=== PATIENT | male | born 1955 | race Caucasian/White ===

== ENCOUNTER 2025-04-25 14:07 | Inpatient (IN) | payer MEDICARE, OTHER, SELFPAY ==
[2025-04-11 10:12] LABS: Hematocrit 33.5 % (39.0-52.0); Hemoglobin 10.5 g/dL (13.0-18.0); Mean Corp Hgb Conc. 31.3 g/dL (33.0-37.0); Mean Corpuscular Volume 85.2 fL (80.0-94.0); Platelet Count 343 10^3/uL (130-400); Red Cell Dist. Width 16.4 % (11.5-14.5)
[2025-04-11 10:13] LABS: INR 1.16; PT 15.2 Sec (11.4-14.6)
[2025-04-11 10:14] LABS: APTT 37.3 Sec (23.4-35.0)
[2025-04-11 10:41] LABS: ALT (SGPT) 15 U/L (0-50); AST (SGOT) 19 U/L (17-59); Albumin 3.7 g/dl (3.5-5.0); Alkaline Phosphatase 84 U/L (38-126); Blood Urea Nitrogen 16 mg/dl (9-20); Calcium 9.4 mg/dl (8.4-10.2); Carbon Dioxide 27 mmol/L (22-30); Chloride 101 mmol/L (98-107); Glucose 175 mg/dl (70-99); Potassium 4.3 mmol/L (3.5-5.1); Sodium 135 mmol/L (135-145); Total Protein 6.7 g/dl (6.3-8.2); eGFR > 60.00
[2025-04-14 13:26] VITALS: BMI 28.3
[2025-04-25] VITALS (9 sets, daily range): BP systolic 114–150; BP diastolic 47–74; BMI 28.3
[2025-04-25 14:30] LABS: Glucose - Point of Care 156 mg/dl (70-99)
[2025-04-25] MEDS: TYLENOL 1000 MG PO (14:35)
[2025-04-25] MEDS: NEURONTIN 300 MG PO (14:36)
[2025-04-25] MEDS: NORMOSOL-R/PLASMALYTE-A 1000 IV (14:36)
[2025-04-25] MEDS: HEPARIN 5000 UNITS SC (16:24)
[2025-04-25 16:34] LABS: Glucose - Point of Care 145 mg/dl (70-99)
[2025-04-25 19:47] LABS: Glucose - Point of Care 182 mg/dl (70-99)
--- NOTE | 2025-04-25 21:15 | PTCARENOTE ---
Pt arrived to unit from PACU, Pt AAOx3 denies pain, VSS,vanessa patent able to make needs known, reviewed plan of care with pt and spouse at bedside, Oriented to room and hospital polices, callbell within reach care ongoing
[2025-04-25] MEDS: COREG 25 MG PO (22:29)
[2025-04-25] MEDS: COZAAR 100 MG PO (22:29)
[2025-04-25] MEDS: NEURONTIN 200 MG PO (22:30)
[2025-04-25] MEDS: D5/0.9% SODIUM CHLORIDE 1000 IV (22:31)
[2025-04-25] MEDS: LASIX 40 MG PO (22:32)
[2025-04-25] MEDS: CELLCEPT 1000 MG PO (22:32)
[2025-04-25] MEDS: MAGNESIUM OXIDE 400 MG PO (22:32)
[2025-04-25] MEDS: TYLENOL PO (22:33)
[2025-04-25] MEDS: PROGRAF 5 MG PO (23:56)
[2025-04-25] MEDS: GLUCOPHAGE PO (23:58)
[2025-04-26] VITALS (7 sets, daily range): BP systolic 113–138; BP diastolic 54–64; PULSE 73; BMI 28.3
[2025-04-26] MEDS: TYLENOL PO ×3 (00:36→20:40)
[2025-04-26 06:18] LABS: Hematocrit 27.9 % (39.0-52.0); Hemoglobin 8.7 g/dL (13.0-18.0); Mean Corp Hgb Conc. 31.2 g/dL (33.0-37.0); Mean Corpuscular Volume 85.8 fL (80.0-94.0); Platelet Count 289 10^3/uL (130-400); Red Cell Dist. Width 15.5 % (11.5-14.5)
[2025-04-26 06:49] LABS: ALT (SGPT) 14 U/L (0-50); AST (SGOT) 20 U/L (17-59); Albumin 3.4 g/dl (3.5-5.0); Alkaline Phosphatase 74 U/L (38-126); Blood Urea Nitrogen 13 mg/dl (9-20); Calcium 8.5 mg/dl (8.4-10.2); Carbon Dioxide 25 mmol/L (22-30); Chloride 105 mmol/L (98-107); Estimated Creatinine Clearance 94 ml/min; Glucose 232 mg/dl (70-99); Potassium 4.6 mmol/L (3.5-5.1); Sodium 137 mmol/L (135-145); Total Protein 6.0 g/dl (6.3-8.2); eGFR > 60.00
[2025-04-26 06:55] LABS: Amylase 72 U/L (30-110); Lipase 241 U/L (23-300)
[2025-04-26] MEDS: TYLENOL 650 MG PO ×3 (08:34→16:24)
[2025-04-26] MEDS: LASIX 40 MG PO ×2 (08:34→16:24)
[2025-04-26] MEDS: NEURONTIN 200 MG PO ×3 (08:34→21:28)
[2025-04-26] MEDS: CELLCEPT 1000 MG PO ×2 (08:35→20:36)
[2025-04-26] MEDS: COREG 25 MG PO ×2 (08:35→20:36)
[2025-04-26] MEDS: GLUCOPHAGE 500 MG PO ×2 (08:35→16:28)
[2025-04-26] MEDS: MAGNESIUM OXIDE 400 MG PO ×2 (08:35→20:35)
[2025-04-26] MEDS: COLACE 100 MG PO ×2 (08:36→20:36)
[2025-04-26] MEDS: FEOSOL 325 MG PO (08:36)
[2025-04-26] MEDS: HEPARIN 5000 UNITS SC (08:36)
[2025-04-26] MEDS: PROGRAF 5 MG PO ×2 (08:58→20:36)
--- NOTE | 2025-04-26 12:05 | CM ---
CM met with pt and spouse bedside
They reside in a 2SH with 3STE + threshold
9 steps to 2nd floor- has ability to sleep on 1st floor if needed
Pt is independent with his ADLs without ADs, drives+
Has a WW for use if needed
Pt denies financial insecurities
PCP- Jonathan Vaughn
Rx- Abdullahi Galeana
Pt is POD#1 adrenalectomy
He noted ADC tomorrow
IMM verbally reviewed- copy provided bedside
Discharge Disposition- anticipate home no needs, family transport
--- NOTE | 2025-04-26 12:07 | W.PN.GENERIC ---
Assessment / Plan
-
S/p left adrenalectomy POD #1
Stable
increase diet to regular
OOB and ambulate
Await path
Physician Progress Note
Subjective
No complaints. Min pain. Tolerating clears
Objective
Vital Signs
Temp Pulse Resp BP Pulse Ox
97.8 F 66 16 129/59 98
04/26/25 07:45 04/26/25 08:35 04/26/25 07:45 04/26/25 08:35 04/26/25 07:45
Lab Results
04/26/25 05:29
04/26/25 05:29
Abdomen - soft, ND, NT. Incision - CDI
[2025-04-26] MEDS: D5/0.9% SODIUM CHLORIDE IV (12:31)
[2025-04-26] MEDS: TORADOL 15 MG IV ×2 (13:36→17:52)
[2025-04-26] MEDS: NORVASC 5 MG PO (16:24)
[2025-04-26] MEDS: CRESTOR 20 MG PO (16:24)
--- NOTE | 2025-04-26 17:20 | OR.RPT ---
Operative Report
Operative Report
Date of Operation: April 25, 2025
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
Postoperative Diagnosis: Same
Surgeon: Fernie Machado M.D.
Operation: Open Adrenalectomy - [id number]
Anesthesia: General Anesthesia
Estimated Blood Loss: 150 cc
Drains: None
Specimen: Left adrenal gland
Findings: Left adrenal tumor
Complications: None
Procedure:
The patient was taken to the operating room and positioned in the usual supine position. After establishing adequate general endotracheal anesthesia, a Webb catheter was inserted. The patient's abdomen was prepped and draped in the standard sterile
manner. An upper midline incision was made with a #10 blade, penetrating the skin and into the subcutaneous tissue. The fascia was identified and divided, allowing entry into the abdomen. Upon entering the abdominal cavity, it was explored
thoroughly. There were no palpable liver masses or signs of intraperitoneal disease. Next, focus was shifted to the stomach. The omentum was divided along the greater curvature, and the stomach was reflected cephalad. The pancreas was identified.
The inferior edge of the pancreas was divided, lifting it off the retroperitoneum. A tumor was found in the retroperitoneum, next to the aorta and vertebral body. This was carefully dissected using Ligasure, it from the vertebral body,
aorta, and retroperitoneum. The tumor was completely removed and sent to pathology for permanent analysis. Hemostasis was achieved. The fascia was closed with a running suture of #1 PDS. The skin was closed with cesar. A sterile dressing was
applied. The final needle, sponge, and instrument counts were correct. The patient was extubated and transferred to the recovery room.
[2025-04-26] MEDS: COZAAR 100 MG PO (21:28)
[2025-04-27] MEDS: TYLENOL PO ×4 (00:22→09:27)
[2025-04-27] MEDS: TORADOL 15 MG IV ×2 (01:13→09:18)
[2025-04-27 03:00] VITALS: BP 116/53
[2025-04-27 07:25] VITALS: BP 128/64
[2025-04-27] MEDS: PROGRAF 5 MG PO (09:16)
[2025-04-27] MEDS: GLUCOPHAGE 500 MG PO (09:16)
[2025-04-27] MEDS: CELLCEPT 1000 MG PO (09:16)
[2025-04-27] MEDS: COREG 25 MG PO (09:16)
[2025-04-27] MEDS: COLACE PO ×2 (09:17→09:27)
[2025-04-27] MEDS: NEURONTIN PO ×2 (09:17→09:28)
[2025-04-27] MEDS: MAGNESIUM OXIDE 400 MG PO (09:17)
[2025-04-27] MEDS: FEOSOL 325 MG PO (09:17)
[2025-04-27] MEDS: LASIX 40 MG PO (09:18)
--- NOTE | 2025-04-27 10:34 | W.DS.TRANS ---
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
-
Discharge Instructions:
Sleep Apnea Risk Intermediate
Discharge Diagnosis/Procedures Left adrenal tumor
Diet No restrictions
Activity As tolerated,No strenuous activity
Driving Restrictions Not until seen by your Dr
Bathing Restrictions OK to Shower
Instructions:
Stand-Alone Forms:
Changes to Home Medications: No
Discharge Medications:
DC Medications w/original date entered in [facility]
amlodipine 5 mg tablet 5 mg PO QPM 04/14/25
apixaban 5 mg tablet (Eliquis) 5 mg PO Q12H 04/14/25
ascorbic acid (vitamin C) 500 mg tablet (Vitamin C) 500 mg PO Daily 04/14/25
aspirin 81 mg tablet 81 mg PO DAILY 04/14/25
carvedilol 25 mg tablet 25 mg PO Q12H 04/14/25
dabrafenib 75 mg capsule (Tafinlar) 150 mg PO Q12H 04/14/25
empagliflozin 25 mg tablet (Jardiance) 25 mg PO DAILY 04/14/25
ferrous sulfate 325 mg (65 mg iron) tablet 325 mg PO DAILY 04/14/25
furosemide 40 mg tablet 40 mg PO BID 04/14/25
losartan 100 mg tablet 100 mg PO HS 04/14/25
magnesium oxide 400 mg PO Q12H 04/14/25
metformin 500 mg PO Q12H 04/14/25
multivit with minerals-folic acid-lycopene 0.4 mg-600 mcg capsule (Men's Daily) 1 cap PO DAILY 04/14/25
mycophenolate mofetil 500 mg tablet 1,000 mg PO Q12H 04/14/25
rosuvastatin 20 mg tablet (Crestor) 20 mg PO QPM 04/14/25
tacrolimus 4 mg tablet,extended release 24 hr 5 mg PO BID 04/14/25
trametinib 2 mg tablet 2 mg PO DAILY 04/14/25
Home Medication Changes
Pending Results: No
--- NOTE | 2025-04-27 10:57 | CM ---
CM reviewed chart and noted dc order
No dc needs noted
IMM issued day prior by this CM
Discharge Disposition- home no needs, spouse transport
[2025-04-27 11:00] VITALS: BP 128/64
--- NOTE | 2025-04-27 11:07 | W.DCSUMMARY ---
Discharge Summary
Discharge Data
Date of Admission: 04/25/25
Date of Discharge: 04/27/25
-
Pending Results: No
Additional Pending Results:
NAME: Song Rodriguez ([id number])
DATE OF ADMISSION: 04/25/2025
DATE OF DISCHARGE: 04/27/2025
DIAGNOSIS: Left adrenal tumor
PROCEDURE: Resection of the left adrenal tumor
SURGEON: Fernie Machado M.D.
HISTORY OF PRESENT ILLNESS:
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 Currently, he is taking targeted therapy (dabrafenib and trametinib), with no significant side effects. On 03/18/2025, he had a
follow-up PET scan, which revealed an enlarging left adrenal tumor, which measured 2.7 cm. On 10/03/2024, this measured 1.9 cm. Furthermore, the SUV value has increased to 20.76 from 16.27. We reviewed the PET scan films and official readings in my
office. 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 He had no new complaints today.
PAST MEDICAL HISTORY: melanoma, DM, HTN, NE, s/p CABG, kidney transplant,
and aortic valve replacement
ALLERGIES: no medications.
MEDICATIONS:
� tacrolimus (PROGRAF) 0.5 mg capsule, Take 0.5 mg by mouth every 12 (twelve) hours
� amiodarone (PACER ONE) 100 mg tablet, Take 100 mg by mouth daily
� amLODIPine (NORVASC) 10 mg tablet, Take 10 mg by mouth daily
� apixaban (ELIOUIS) 5 mg tablet. Take by mouth every 12 hours
� aspirin 81 mg chewable tablet, Chew 81 mg daily
� calcium carbonate (OS�LEONEL) 600 mg calcium (1,500 mg) tablet daily
� carvedilol (COREG) 25 mg tablet, Take 25 mg by mouth 2 (two) times a day with a meal
� dabrafenib (TAFINLARI 75 mg capsule. Take 2 capsules (150 mg total) every 12 hours
� empagliftozin (Jardiance) 25 mg tablet, Take 10 mg by mouth daily
� ferrous sulfate 325 mg (65 mg imn) EC tablet Take 325 mg 3 times a day with meals.,
� furosemide (LASIX) 20 mg tablet, Take 20 mg by mouth 2 (two) times a day
� losartan (COZAAR) 100 mg tablet. Take 100 mg by mouth daily
� magnesium oxide (MAG-OX) 400 mg (241.3 mg magnesium) tablet daily
� metFORMIN (GLUCOPHAGE)500 mg tablet. Take 500 mg 2 times a day with a meal
� multivitamin with minerals tablet, Take 1 tablet by mouth daily
� rnycophenolate (CELLCEPT) 500 mg tablet, Take by mouth 2 (two) Limes a day
� rosuvastatin (CRESTOR) 20 mg tablet. Take 20 mg by mouth daily
� trarnetinil (MEKINIST) 2 mg tablet daily
REVIEW OF SYSTEMS: Unremarkable.
SOCIAL HISTORY: No EtOH or tobacco use.
FAMILY HISTORY: Non-contributory.
PHYSICAL EXAMINATION:
The back surgical scar has healed well, with no evidence of recurrent disease. There was no evidence of satellitosis or in-transit metastasis. The lymph node basins in the cervical, axillary, supraclavicular, and inguinal regions revealed no
evidence of lymphadenopathy. His lungs were clear. His heart had a regular rate and rhythm.
HOSPITAL COURSE:
He presented to the hospital and underwent an eventful surgery. Postoperatively, he was transferred to the surgical floor, where he recovered well without any problem. On postoperative date #2, he was discharged.
CONDITION ON DISCHARGE: Stable
FOLLOW-UP: 1-2 weeks
Discharge Plan
-
Patient Disposition: Home (Routine Discharge)
Discharge Diagnosis/Procedures: Left adrenal tumor
Condition: Fair
Diet: No restrictions
Activity: As tolerated and No strenuous activity
Driving Restrictions: Not until seen by your Dr
Bathing Restrictions: OK to Shower
Activity Restrictions/Additional Instructions:
Call Dr. Machado's office for an appointment ([phone])
Referrals:
Jonathan Vaughn DO [Family Provider, [facility]]
Prescriptions:
Continued
furosemide 40 mg Tablet
40 mg PO BID
Patient Comments:
0815 & Noon
carvedilol 25 mg Tablet
25 mg PO Q12H
amlodipine 5 mg Tablet
5 mg PO QPM
mycophenolate mofetil 500 mg Tablet
1,000 mg PO Q12H
ascorbic acid (vitamin C) [Vitamin C] 500 mg Tablet
500 mg PO Daily
Patient Comments:
Daily @ 1200
ferrous sulfate 325 mg (65 mg iron) Tablet
325 mg PO DAILY
Patient Comments:
Daily 1200
aspirin 81 mg Tablet
81 mg PO DAILY
losartan 100 mg Tablet
100 mg PO HS
rosuvastatin [Crestor] 20 mg Tablet
20 mg PO QPM
Men's Daily 0.4-600 mg-mcg Capsule
1 cap PO DAILY
Eliquis 5 mg Tablet
5 mg PO Q12H
Tafinlar 75 mg Capsule
150 mg PO Q12H
Patient Comments:
1015 and 2215
trametinib 2 mg Tablet
2 mg PO DAILY
Jardiance 25 mg Tablet
25 mg PO DAILY
tacrolimus 4 mg Tablet Extended Release 24 Hr
5 mg PO BID
Patient Comments:
med was changed on by his kidney dr per pt
magnesium oxide 400 mg magnesium Tablet
400 mg PO Q12H
metformin
500 mg PO Q12H
Discharge Orders:
Discharge Patient (As Directed); Ordered 04/27/25
Ordered By: Fernie Machado
Discharge Date and Time
Print Language: SETSWANA
== END 2025-04-27 11:28 | disposition home or self-care (01) | DRG 615 ==
LOC: 2 SOUTH 14:07
PROVIDERS: ADMITTING PHYSICIAN Surgery; FAMILY PHYSICIAN Family Medicine; REFERRING PHYSICIAN Internal Medicine Cardiovascular Disease
PROC: 0GB20ZZ Excision of Left Adrenal Gland, Open Approach (ICD-10-PCS; 2025-04-26)
DX: D49.7 Neoplasm of unspecified behavior of endocrine glands and other parts of nervous system (principal); Z85.820 Personal history of malignant melanoma of skin; E11.9 Type 2 diabetes mellitus without complications
CPT/HCPCS: 36415; 80053; 82150; 82962; 83690; 85027; 85610; 85730; 86850; 86900; 86901; 88307; 88313; 88341; 88342; 97162; A4648; C9250